=== PATIENT | male | born 1975 | race Caucasian/White ===

== ENCOUNTER 2017-11-23 04:51 | Emergency (ER) | payer SELFPAY ==
[~2017-11-23] VITALS: Ht 180.3 cm; Wt 85.6 kg
[2017-11-23] MEDS ORDERED: TYLENOL WITH C1 EACH PO (07:00)
[2017-11-23] MEDS ORDERED: AMOXICILLIN500 MG PO (07:00)
[2017-11-23 07:19] VITALS: BP 122/81
== END 2017-11-23 07:20 | disposition home or self-care (01) ==
LOC: EME 04:51
DX: K08.89 Other specified disorders of teeth and supporting structures (principal); F17.200 Nicotine dependence, unspecified, uncomplicated
CPT/HCPCS: 99281; 99283